=== PATIENT | female | born 1995 | race Caucasian/White ===

== ENCOUNTER 2021-06-28 07:06 | Day surgery (SDC) | payer MEDICAID ==
[2021-06-27 08:41] VITALS: BMI 36.3
[2021-06-27 13:03] LABS: Hemoglobin 11.7 g/dL (12.0-15.5); Mean Corpuscular HGB CONC 33.1 g/dL (32.0-36.0); Mean Corpuscular Hemoglobin 29.5 pg (27.0-33.0); Mean Corpuscular Volume 89.4 fl (81.6-98.3); Mean Platelet Volume 9.9 fl (7.4-10.4); Platelet Count 270 10x3/uL (150-450); Red Blood Cell (RBC) Count 3.96 10x6/uL (3.90-5.03); White Blood Cell (WBC) Count 6.3 10x3/uL (3.5-10.5)
[2021-06-27 13:44] LABS: Bilirubin Neg (Negative); Blood, Urine Negative (Negative); Glucose, Urine (Dipstick) Normal (Negative); Ketone, Urine Negative (Negative); Leukocyte 100 (Negative); Nitrite Positive (Negative); Protein, Urine (Dipstick) Negative (Neg-Trace); Urobilinogen Normal mg/dL (Less than 2)
[2021-06-27 13:45] LABS: Clarity Hazy (Clear)
[2021-06-27 14:18] LABS: RBC/HPF 0-3 HPF (0-3)
[2021-06-27 14:19] LABS: Bacteria/HPF 3+ HPF (None Seen); Mucous/LPF 2+ LPF (<2+); Yeast-Budding Rare HPF (None Seen)
[2021-06-28] MEDS ORDERED: Lidocaine 1% MPF 2 ML VIAL ONE (07:57)
[2021-06-28] MEDS ORDERED: Acetaminophen 500 MG TAB ONE (08:00)
[2021-06-28] MEDS ORDERED: Midazolam HCl 2 mg/2 ml Vial ONE (10:41)
[2021-06-28] MEDS ORDERED: Fentanyl 100 MCG/2 ML VIAL ONE (10:54)
[2021-06-28] MEDS ORDERED: PROPOFOL 20 ML ONE (10:54)
[2021-06-28] MEDS ORDERED: Lidocaine 1% PF 5 ML VIAL ONE (10:55)
[2021-06-28] MEDS ORDERED: Ondansetron PF 4 MG/2 ML Vial ONE (10:55)
[2021-06-28] MEDS ORDERED: Dexamethasone 4 mg/ml Vial ONE (10:55)
[2021-06-28] MEDS ORDERED: Oxytocin 10 UNITS/ML VIAL ONE (11:19)
[2021-06-28] MEDS ORDERED: Ketorolac Tromethamine 30 MG/ML VIAL ONE (11:56)
[2021-06-28] MEDS ORDERED: Methylergonovine 0.2 MG/ML VIAL ONE ×2 (11:57→13:07)
== END 2021-06-28 13:30 | disposition home or self-care (01) ==
LOC: CSHSDC 07:06
PROVIDERS: ATTEND Obstetrics & Gynecology
PROC: 10D17ZZ Extraction of Products of Conception, Retained, Via Natural or Artificial Opening (ICD-10-PCS; principal; 2021-06-28)
DX: O02.1 Missed abortion (principal); Z86.16 Personal history of COVID-19; Z88.0 Allergy status to penicillin
CPT/HCPCS: 36415; 81001; 85027; 86850; 86900; 86901; 88305; J1100; J1885; J2210; J2250; J2405; J2590; J2704; J3010; J3490

== ENCOUNTER 2021-10-11 13:40 | Emergency (ER) | payer MEDICAID, OTHER ==
[2021-10-11 15:05] LABS: #Basophils 0.1 10x3/uL (0.0-0.2); #Eosinphils 0.1 10x3/uL (0.0-0.5); #Monocytes 0.6 10x3/uL (0.0-1.1); #Neutrophils 5.9 10x3/uL (1.5-8.4); %Basophils 0.8 % (0.0-2.0); %Eosinophils 0.7 % (0.0-6.0); %Lymphocytes 20.7 % (18.0-47.0); %Monocytes 7.1 % (0.0-10.0); %Neutrophils 70.5 % (40.0-75.0); Hemoglobin 12.6 g/dL (12.0-15.5); Mean Corpuscular HGB CONC 34.6 g/dL (32.0-36.0); Mean Corpuscular Hemoglobin 29.6 pg (27.0-33.0); Mean Corpuscular Volume 85.4 fl (81.6-98.3); Mean Platelet Volume 9.6 fl (7.4-10.4); Platelet Count 272 10x3/uL (150-450); RBC Distribution Width 12.7 % (11.5-14.5); Red Blood Cell (RBC) Count 4.26 10x6/uL (3.90-5.03); White Blood Cell (WBC) Count 8.4 10x3/uL (3.5-10.5)
== END 2021-10-11 16:40 | disposition home or self-care (01) ==
LOC: CSHERS 13:40
DX: O20.0 Threatened abortion (principal); O10.011 Pre-existing essential hypertension complicating pregnancy, first trimester; Z3A.01 Less than 8 weeks gestation of pregnancy
CPT/HCPCS: 36415; 76856; 84702; 85025; 86900; 86901

== ENCOUNTER 2021-10-14 10:52 | Emergency (ER) | payer OTHER ==
[2021-10-14 11:49] LABS: #Basophils 0.1 10x3/uL (0.0-0.2); #Eosinphils 0.1 10x3/uL (0.0-0.5); #Monocytes 0.5 10x3/uL (0.0-1.1); #Neutrophils 4.7 10x3/uL (1.5-8.4); %Basophils 0.9 % (0.0-2.0); %Lymphocytes 23.9 % (18.0-47.0); %Monocytes 6.8 % (0.0-10.0); %Neutrophils 67.1 % (40.0-75.0); Hemoglobin 12.2 g/dL (12.0-15.5); Mean Corpuscular HGB CONC 34.6 g/dL (32.0-36.0); Mean Corpuscular Hemoglobin 29.6 pg (27.0-33.0); Mean Corpuscular Volume 85.7 fl (81.6-98.3); Mean Platelet Volume 9.6 fl (7.4-10.4); Platelet Count 267 10x3/uL (150-450); RBC Distribution Width 12.8 % (11.5-14.5); Red Blood Cell (RBC) Count 4.12 10x6/uL (3.90-5.03)
[2021-10-14 11:54] LABS: Bilirubin Neg (Negative); Blood, Urine 250 (Negative); Glucose, Urine (Dipstick) Normal (Negative); Ketone, Urine Negative (Negative); Leukocyte 25 (Negative); Nitrite Negative (Negative); Protein, Urine (Dipstick) 500 mg/dl (Neg-Trace); Specific Gravity, Urine 1.015 (1.002-1.036); Urobilinogen Normal mg/dL (Less than 2); pH, Urine 6.5 (5.0-9.0)
[2021-10-14 11:58] LABS: Bacteria/HPF Rare-Few HPF (None Seen); Clarity Bloody (Clear); RBC/HPF Greater than 50 HPF (0-3); Squamous Epithelial 0-3 HPF (0-3); Transitional Epithelial 0-3 HPF (None Seen); WBC/HPF 0-3 HPF (0-3)
[2021-10-14 12:18] LABS: ALT (SGPT) 24 U/L (8-55); AST (SGOT) 21 U/L (5-34); Albumin 4.3 g/dL (3.5-5.0); Alkaline Phosphatase 49 U/L (40-110); Anion Gap 15 mmol/L (10-20); BUN (Urea Nitrogen) 12 mg/dL (7.0-18.7); Calc. Creatinine Clearance 0 mL/min (70-130); Calcium 9.3 mg/dL (7.8-10.44); Carbon Dioxide 24 mmol/L (22-29); Chloride 106 mmol/L (98-107); Globulin 3.2 g/dL (2.4-3.5); Glucose 99 mg/dL (70-105); Potassium 3.8 mmol/L (3.5-5.1); Protein, Total 7.5 g/dL (6.0-8.3); Sodium 141 mmol/L (136-145)
== END 2021-10-14 12:57 | disposition home or self-care (01) ==
LOC: CSHERS 10:52
DX: O03.9 Complete or unspecified spontaneous abortion without complication (principal); I10 Essential (primary) hypertension
CPT/HCPCS: 36415; 76856; 80053; 81003; 81015; 84702; 85025

== ENCOUNTER 2022-07-30 08:42 | Inpatient (IN) | payer OTHER ==
[~2022-07-30 08:42] MED LIST: Bupivacaine 0.25% HCL 30 ML VIAL ONE
[2022-07-30] MEDS ORDERED: Ondansetron PF 4 MG/2 ML Vial IVP PRN ×3 (08:57→23:45)
[2022-07-30] MEDS ORDERED: Carboprost 250 MCG/ML AMP IM PRN (08:57)
[2022-07-30] MEDS ORDERED: Lidocaine 1% (PF) 30 ML VIAL SC PRN (08:57)
[2022-07-30] MEDS ORDERED: hydrALAZINE 20 MG/ML VIAL SLOW IVP PRN ×4 (08:57→23:36)
[2022-07-30] MEDS ORDERED: Calcium Gluc 4.6 MEQ/10 ML (100 MG/ML) SLOW IVP PRN (08:57)
[2022-07-30] MEDS ORDERED: HYDROcodone/Acetaminophen 5/325 mg Tablet PO PRN ×4 (08:57→23:45)
[2022-07-30] MEDS ORDERED: Ibuprofen 800 MG TAB PO PRN (08:57)
[2022-07-30] MEDS ORDERED: Diphenoxylate HCl/Atropine Tablet PO PRN ×2 (08:57)
[2022-07-30] MEDS ORDERED: Acetaminophen 500 MG TAB PO PRN (08:57)
[2022-07-30] MEDS ORDERED: Misoprostol 200 MCG TAB PR PRN (08:57)
[2022-07-30] MEDS ORDERED: Labetalol HCl 100 MG/20 ML VIAL SLOW IVP PRN ×2 (08:57)
[2022-07-30] MEDS ORDERED: Docusate 100 MG CAP PO PRN (08:57)
[2022-07-30] MEDS ORDERED: Promethazine HCl 25 MG/ML VIAL IM PRN ×3 (08:57→23:45)
[2022-07-30] MEDS ORDERED: Butorphanol Tartrate 1 MG/ML VIAL SLOW IVP PRN (08:57)
[2022-07-30] MEDS ORDERED: Lorazepam 2 MG/ML VIAL SLOW IVP PRN (08:57)
[2022-07-30] MEDS ORDERED: NS w/ Oxytocin 30 units 500 ML IV SCH ×2 (09:00)
[2022-07-30] MEDS: Lactated Ringer's 1,000 ML IV SCH ×2 (09:40→12:00)
[2022-07-30 10:03] VITALS: BMI 41.0
[2022-07-30 10:07] LABS: #Eosinphils 0.1 10x3/uL (0.0-0.5); #Monocytes 0.9 10x3/uL (0.0-1.1); #Neutrophils 6.2 10x3/uL (1.5-8.4); %Basophils 0.5 % (0.0-2.0); %Eosinophils 0.7 % (0.0-6.0); %Lymphocytes 16.2 % (18.0-47.0); %Monocytes 9.7 % (0.0-10.0); %Neutrophils 71.2 % (40.0-75.0); Hemoglobin 9.6 g/dL (12.0-15.5); Mean Corpuscular Hemoglobin 26.9 pg (27.0-33.0); Mean Platelet Volume 11.3 fl (7.4-10.4); Platelet Count 208 10x3/uL (150-450); RBC Distribution Width 14.6 % (11.5-14.5); Red Blood Cell (RBC) Count 3.57 10x6/uL (3.90-5.03); White Blood Cell (WBC) Count 8.7 10x3/uL (3.5-10.5)
[2022-07-30 10:34] LABS: SARS-CoV-2 NAA Rapid Test Not Detected (NotDetected)
[2022-07-30 10:41] LABS: HBSAg Index 0.12 S/CO (0-0.99); HIV (1/2) Antibody/Antigen Non-Reactive (NonReactive); Hep B Surf Ag Non-Reactive S/CO (NonReactive)
[2022-07-30 10:42] LABS: Syphilis Antibody Nonreactive (Nonreactive); Syphilis Antibody Index 0.02 S/CO (<1.00 Non-Reactive)
[2022-07-30] MEDS ORDERED: Fentanyl 2 mcg/Bup 0.1% Cadd 100 ML ONE (11:03)
[2022-07-30] MEDS ORDERED: ePHEDrine Sulfate 50 MG/10 ML VIAL SLOW IVP PRN (11:34)
[2022-07-30] MEDS ORDERED: Naloxone HCl 0.4 mg/ml Vial IVP PRN ×2 (11:34)
[2022-07-30] MEDS ORDERED: Moisturizing Cream (Eucerin) 113 GM JAR TOP PRN (11:34)
[2022-07-30] MEDS ORDERED: Acetaminophen 325 MG TAB PO PRN ×2 (11:34→20:04)
[2022-07-30] MEDS ORDERED: Lactated Ringer's 500 ML IV PRN (11:34)
[2022-07-30] MEDS ORDERED: diphenhydrAMINE 50 MG/ML VIAL IVP PRN (11:34)
[2022-07-30] MEDS ORDERED: Communication Order-Pharmacy FS SCH (11:45)
[2022-07-30] MEDS ORDERED: Fentanyl 2 mcg/Bupivacaine 0.1% Cassette 100 ML EPIDURAL SCH (11:45)
[2022-07-30 12:16] LABS: Creatinine, Urine 144.29 mg/dL (47-110)
[2022-07-30] MEDS ORDERED: Witch Hazel-Glycerin 1 EACH JAR TOP PRN (20:04)
[2022-07-30] MEDS ORDERED: Labetalol HCl 200 MG TAB PO SCH (21:00)
[2022-07-30] MEDS ORDERED: Misoprostol 200 MCG TAB VAG PRN (23:37)
[2022-07-30] MEDS ORDERED: Boostrix 0.5 ML (Tdap) VIAL (>/=7 yrs of age) IM SCH (23:45)
[2022-07-30] MEDS ORDERED: NS w/ Oxytocin 30 units 500 ML IVPB SCH (23:45)
[2022-07-30] MEDS ORDERED: Milk Of Magnesia 30 ML UDCUP PO PRN (23:45)
[2022-07-30] MEDS ORDERED: Methylergonovine 0.2 MG/ML VIAL IM PRN (23:45)
[2022-07-30] MEDS ORDERED: Bisacodyl 10 MG SUPP PR PRN (23:45)
[2022-07-30] MEDS ORDERED: Ampicillin/Sulbactam 3 GM in Sodium Chloride 0.9% 100 ML IVPB SCH (23:59)
[2022-07-31] MEDS: Ibuprofen 800 MG TAB PO SCH ×4 (00:32→23:25)
[2022-07-31] MEDS: CEFAZOLIN 2 GM in Sodium Chloride 0.9% 100 ML IVPB SCH ×2 (00:33→08:22)
[2022-07-31 04:10] LABS: Hemoglobin 8.1 g/dL (12.0-15.5); Mean Corpuscular Hemoglobin 26.9 pg (27.0-33.0); Mean Corpuscular Volume 84.1 fl (81.6-98.3); Platelet Count 166 10x3/uL (150-450); RBC Distribution Width 14.8 % (11.5-14.5); Red Blood Cell (RBC) Count 3.01 10x6/uL (3.90-5.03); White Blood Cell (WBC) Count 14.2 10x3/uL (3.5-10.5)
[2022-07-31] MEDS: Ferrous Sulfate 325 MG TAB PO SCH ×2 (08:20→16:27)
[2022-07-31] MEDS: Docusate 100 MG CAP PO SCH ×2 (08:21→21:17)
[2022-08-01 07:46] VITALS: BP 125/74; TEMP 97.6
[2022-08-01] MEDS: Docusate 100 MG CAP PO SCH (08:53)
[2022-08-01] MEDS: Ibuprofen 800 MG TAB PO SCH (08:53)
[2022-08-01] MEDS: Ferrous Sulfate 325 MG TAB PO SCH (08:53)
== END 2022-08-01 12:07 | disposition home or self-care (01) | DRG 807 ==
LOC: CSHLD 08:42 → CSHPED 22:50
PROVIDERS: ADMIT Obstetrics & Gynecology; ATTEND Obstetrics & Gynecology
PROC: 10D07Z6 Extraction of Products of Conception, Vacuum, Via Natural or Artificial Opening (ICD-10-PCS; principal; 2022-07-30)
PROC: 0UQMXZZ Repair Vulva, External Approach (ICD-10-PCS; 2022-07-30)
PROC: 10907ZC Drainage of Amniotic Fluid, Therapeutic from Products of Conception, Via Natural or Artificial Opening (ICD-10-PCS; 2022-07-30)
PROC: 3E033VJ Introduction of Other Hormone into Peripheral Vein, Percutaneous Approach (ICD-10-PCS; 2022-07-30)
DX: O13.4 Gestational [pregnancy-induced] hypertension without significant proteinuria, complicating childbirth (principal); Z37.0 Single live birth; Z3A.37 37 weeks gestation of pregnancy; Z20.822 Contact with and (suspected) exposure to COVID-19; O99.02 Anemia complicating childbirth; D64.9 Anemia, unspecified; O32.8XX0 Maternal care for other malpresentation of fetus, not applicable or unspecified; O71.82 Other specified trauma to perineum and vulva; O70.0 First degree perineal laceration during delivery; Z79.899 Other long term (current) drug therapy; Z79.82 Long term (current) use of aspirin; Z88.0 Allergy status to penicillin; Z98.890 Other specified postprocedural states
CPT/HCPCS: 51702; 82570; 83615; 84156; 84550; 85025; 85027; 86780; 86850; 86900; 86901; 87340; 87389; J2590; J3490; J7120; S0020; U0002